=== PATIENT | female | born 2005 | race Caucasian/White ===

== ENCOUNTER 2024-09-14 19:44 | Emergency (ER) | payer OTHER ==
[2024-09-14] MEDS ORDERED: Ketorolac Tromethamine 30 MG (1 mL) VIAL ONE (22:22)
[2024-09-14] MEDS ORDERED: Doxycycline 100 MG CAP PO SCH (22:45)
== END 2024-09-14 22:30 | disposition home or self-care (01) ==
LOC: CSHERS 19:44
DX: L73.9 Follicular disorder, unspecified (principal)
CPT/HCPCS: 96372; 99282; J1885